=== PATIENT | female | born 1955 | race African-American/Black ===

== ENCOUNTER 2018-10-15 18:20 | Inpatient (IN) | payer MEDICARE, MEDICAID ==
[~2018-10-15] VITALS: Ht 170.2 cm; Wt 102.1 kg
[2018-10-15] MEDS ORDERED: PHENYLEPHRINE PO (18:42)
[2018-10-15] MEDS ORDERED: ALBU8.5H8 INH (18:42)
[2018-10-15] MEDS ORDERED: COD PO (18:42)
--- NOTE | 2018-10-15 18:43 | NUR ---
Patient medically cleared by ER MD for inpatient admission. Pending MHU bed availability. Currently bed is being cleaned.
--- NOTE | 2018-10-15 18:56 | NUR ---
Report given to Jesus SILVA
--- NOTE | 2018-10-15 19:34 | NUR ---
Pt wanded by security and searched for contraband. Report given to Winifred SILVA U.
--- NOTE | 2018-10-15 20:30 | NUR ---
1953 Admitted to [facility] 63 y/o F via w/c accompanied by x1 ER staff. A&O x3. Placed on 5150 hold for GD and DTO. Pt became aggressive with staff at [facility], refusing care, anxious, and noted sucking on her breast. Pt calm and answered all admission questions and signed admission papers. Resp even and unlabored. No s/s of acute distress noted. Denies pain. Pt ambulatory with steady gait, continent, self-care. Oriented to unit, room, bathroom, and phone privileges. Head to toe assessment done, noted with +2 nonpitting edema to right ankle and +1 nonpitting edema to left ankle. Per ER report, pt refused to have x-ray done to left foot for the swelling. Dr. Jensen psychiatrist notified of by charge nurse of admission with orders and Dr. Schafer notied of admission as well. Pt called her family to notify them of her admission. She refused to have charge nurse call her family to notify them. All safety precautions in place. Will cont to monitor.
[2018-10-15] MEDS ORDERED: MAG HYDROX/AL HYDROX/SIMETH 30 ML LIQUID UDC PO PRN (21:00)
[2018-10-15] MEDS ORDERED: MAGNESIUM HYDROXIDE 30 ML LIQUID UDC PO PRN (21:00)
[2018-10-15] MEDS ORDERED: ALBUTEROL SULFATE 8 GM HFA.AER.AD INH PRN (22:00)
[2018-10-15 22:08] VITALS: BP 136/43
[2018-10-15] MEDS ORDERED: ALBUTEROL SULFATE 1.25 MG/3 ML NEBU NEB PRN (22:15)
[2018-10-15] MEDS: LORAZEPAM 0.5 MG TABLET PO PRN (23:01)
--- NOTE | 2018-10-16 06:44 | NUR ---
GPS Nursing Note: Pt slept 6.0 hrs. Showered this am. No s/s of acute distress noted. Continues to have delusions and mood swings. Allowed lab draw and navjot well. All safety precautions in place. Will endorse to oncoming shift.
[2018-10-16 07:30] VITALS: BP 135/59
[2018-10-16 07:30] LABS: BASOPHILS % (AUTO) 0.4 % (0.0-2.0); EOSINOPHILS # (AUTO) 0.1 K/uL (0.0-0.7); EOSINOPHILS % (AUTO) 3.6 % (0.0-7.0); LYMPHOCYTES # (AUTO) 1.1 K/uL (20.0-40.0); LYMPHOCYTES % (AUTO) 28.9 % (20.5-51.5); MEAN CORPUSCULAR HEMOGLOBIN 29.2 uug (24.7-32.8); MEAN CORPUSCULAR HGB CONC 32 g/dL (32.3-35.6); MEAN CORPUSCULAR VOLUME 90.3 fL (75.5-95.3); MONOCYTES # (AUTO) 0.4 K/uL (2.0-10.0); MONOCYTES % (AUTO) 10.5 % (0.0-11.0); NEUTROPHILS # (AUTO) 2.1 K/uL (1.8-8.9); NEUTROPHILS % (AUTO) 56.6 % (38.5-71.5); PLATELET COUNT (AUTO) 206 K/uL (179-408); WHITE BLOOD COUNT (AUTO) 3.7 K/uL (3.8-11.8)
[2018-10-16 07:42] LABS: BILIRUBIN,TOTAL 0.3 mg/dL (0.2-1.0); CREATININE 0.9 mg/dL (0.6-1.3); MAGNESIUM 1.9 mg/dL (1.8-2.4); PHOSPHOROUS 3.8 mg/dL (2.5-4.9); POTASSIUM 4.1 mmol/L (3.5-5.1); TOTAL PROTEIN, SERUM 7.4 g/dL (6.4-8.2)
[2018-10-16 09:34] LABS: THYROID STIMULATING HORMONE 2.247 mIU/mL (0.358-3.740)
[2018-10-16] MEDS: NICOTINE 7 MG/24HR PATCH TD SCH (10:17)
[2018-10-16] MEDS: LORAZEPAM 0.5 MG TABLET PO PRN ×2 (12:22→17:15)
[2018-10-16 16:00] VITALS: BP 133/64
[2018-10-16] MEDS ORDERED: LORAZEPAM 2 MG/1 ML VIAL IM ONE (18:00)
[2018-10-16] MEDS ORDERED: diphenhydrAMINE 50 MG/1 ML VIAL IM ONE (18:00)
[2018-10-16] MEDS ORDERED: HALOPERIDOL LACTATE 5 MG/1 ML VIAL IM ONE (18:00)
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
[2018-10-16 20:27] VITALS: BP 130/60
[2018-10-16] MEDS: HALOPERIDOL 5 MG TABLET PO SCH (20:33)
[2018-10-16] MEDS: BENZTROPINE MESYLATE 0.5 MG TABLET PO SCH (20:33)
[2018-10-16] MEDS ORDERED: risperiDONE 1 MG/ML UDC GT SCH (21:00)
[2018-10-17 07:30] VITALS: BP 124/43
[2018-10-17] MEDS: BENZTROPINE MESYLATE 0.5 MG TABLET PO SCH ×2 (08:51→20:26)
[2018-10-17] MEDS: NICOTINE 7 MG/24HR PATCH TD SCH (08:51)
[2018-10-17] MEDS: HALOPERIDOL 5 MG TABLET PO SCH ×2 (08:51→20:26)
--- NOTE | 2018-10-17 11:50 | NUR ---
Initial Discharge Instructions: Patient is currently living with her mother Nicola Francisco ([phone]) at [address] [place], [place] [id number]. Per pt she is requesting to return home with her parents. Pts mother Nicola is open to pt returning home once stabilized and psychiatrically cleared. SW will continue to collaborate with pt, family, and MD regarding most appropriate discharge plans for this patient. SW will form a safe and proper discharge plan.
[2018-10-17 15:10] LABS: *BILIRUBIN,URIN NEGATIVE (NEGATIVE); *BLOOD, URINE NEGATIVE (NEGATIVE); *CLARITY,URINE CLEAR (CLEAR); *COLOR,URINE YELLOW (YELLOW); *KETONES,URINE NEGATIVE (NEGATIVE); *UROBILINOGEN,URINE 0.2 E.U./dl (NORMAL); LEUKOCYTE ESTERASE ,URINE NEGATIVE (NEGATIVE); NITRITE, URINE NEGATIVE (NEGATIVE); UGLUCOSE NEGATIVE (NEGATIVE)
[2018-10-17 16:00] VITALS: BP 147/61
[2018-10-17 16:02] LABS: MUCUS,URINE FEW /LPF (0-FEW); SQUAMOUS EPITHELIAL CELL,UR FEW /HPF (NONE SEEN); WBC,URINE 0-3 /HPF (0-3)
[2018-10-17] MEDS: LORAZEPAM 0.5 MG TABLET PO PRN (20:26)
[2018-10-17 20:31] VITALS: BP 121/56
[2018-10-17] MEDS ORDERED: diphenhydrAMINE 50 MG/1 ML VIAL IM ONE (22:15)
[2018-10-17] MEDS ORDERED: LORAZEPAM 2 MG/1 ML VIAL IM ONE (22:15)
[2018-10-17] MEDS ORDERED: HALOPERIDOL LACTATE 5 MG/1 ML VIAL IM ONE (22:15)
--- NOTE | 2018-10-17 23:02 | NUR ---
Patient became irritated when another patient was put into the room. Patient stated "That one over there is my mother and I don't like my mother". Right after that the Patient left the room and became increasingly agitated by the sight of the housekeepers cart. Patient had a blanket in her hand and begun swinging it violently at the cart. The cart was removed and the patient kept swinging the blanket at the floor and threatening to hit staff with it. This patient was very agitated and unmanageable. MD was notified and orders were received for IM injection. IM administered as ordered on right and left upper gluteal. Patient observed for 30 mins post injection, no signs of distress noted, will continue to monitor for safety as well as provide a therapeutic environment.
--- NOTE | 2018-10-18 00:26 | NUR ---
Patient in bed asleep at this time. Continuing to monitor closely, and to keep patient safe and free from injury.
[2018-10-18 07:30] VITALS: BP 100/54
[2018-10-18] MEDS: BENZTROPINE MESYLATE 0.5 MG TABLET PO SCH ×2 (08:04→20:11)
[2018-10-18] MEDS: HALOPERIDOL 5 MG TABLET PO SCH ×2 (08:04→20:12)
[2018-10-18] MEDS: NICOTINE 7 MG/24HR PATCH TD SCH (08:06)
[2018-10-18] MEDS: LORAZEPAM 0.5 MG TABLET PO PRN ×2 (10:57→22:44)
[2018-10-18 16:00] VITALS: BP 132/58
[2018-10-18] MEDS: ACETAMINOPHEN 325 MG TABLET PO PRN (16:03)
[2018-10-18 19:54] VITALS: BP_SYST 133; BP_SYST 160; BP_DIAS 63; BP_DIAS 75
--- NOTE | 2018-10-18 22:44 | NUR ---
Patient is pacing. Agitated. Ativan PO given. Will continue to monitor.
[2018-10-18] MEDS: TEMAZEPAM 7.5 MG CAPSULE PO PRN (23:19)
[2018-10-19 07:30] VITALS: BP 137/56
[2018-10-19] MEDS: LORAZEPAM 0.5 MG TABLET PO PRN (08:37)
[2018-10-19] MEDS: NICOTINE 7 MG/24HR PATCH TD SCH (08:44)
[2018-10-19] MEDS: BENZTROPINE MESYLATE 0.5 MG TABLET PO SCH ×2 (08:44→20:17)
[2018-10-19] MEDS: HALOPERIDOL 5 MG TABLET PO SCH ×2 (08:44→20:17)
[2018-10-19 16:00] VITALS: BP 122/59
[2018-10-19 20:11] VITALS: BP 129/60
[2018-10-19] MEDS: TEMAZEPAM 7.5 MG CAPSULE PO PRN (23:56)
--- NOTE | 2018-10-20 01:20 | NUR ---
PT WAS GIVEN RESTORIL FOR SLEEP, PT STILL AWAKE AT THIS TIME, SITTING IN A CHAIR IN THE HALLWAY. PACING AT TIMES. PT WAS OFFERED WITH ATIVAN, BUT REFUSED. WILL CONTINUE TO MONITOR.
[2018-10-20] MEDS: LORAZEPAM 0.5 MG TABLET PO PRN ×4 (02:50→20:52)
--- NOTE | 2018-10-20 02:51 | NUR ---
GIVEN ATIVAN PER PT REQUEST, WILL CONTINUE TO MONITOR.
--- NOTE | 2018-10-20 05:03 | NUR ---
NSG/GPS Patient visible on unit mostly pacing hallway with unpredictable behavior, bizarre affect with paranoid mood. Patient required frequent redirection through out night, with negative results, patient refused to remain in the room, insisted on staying out in the hallway sitting in bryson-chair, at times reading a bible other behaviors included writing, approaching the nursing station with demands for a snack, magazines, requests to go into the lounge and watch television as well as voiding all over herself twice while clothes and as she sat in the bryson-chair without regard to staff prompting and/or redirection. Patient appeared to be fixated on nursing staff. Approached the nursing station and yelled out negative comments regarding nurse and made threats, patient also threw her foot wear at nurse. Patient requires increased observation for unit and staff safety. Will endorse to a.m. shift to follow up with psychiatrist as she continues to monitor for violent outbursts.
--- NOTE | 2018-10-20 05:52 | NUR ---
GPS/NSG Patient continues to pace hallway with noted increased agitation, observed responding to internal stimuli; patient speaking about being . Patient's statements sound disorganized and tangental, appears to be escalating staff to continue observation to ensure a safe environment.
--- NOTE | 2018-10-20 06:58 | NUR ---
PT SLEPT TOTAL OF 2.30 HRS DESPITE OF RESTORIL AND ATIVAN. PACING IN THE HALLWAY.
[2018-10-20 07:30] VITALS: BP 141/58
[2018-10-20] MEDS: NICOTINE 7 MG/24HR PATCH TD SCH (08:08)
[2018-10-20] MEDS: HALOPERIDOL 5 MG TABLET PO SCH ×2 (08:09→20:31)
[2018-10-20] MEDS: BENZTROPINE MESYLATE 0.5 MG TABLET PO SCH ×2 (08:09→20:31)
--- NOTE | 2018-10-20 14:48 | NUR ---
GPS: Nursing Notes: Thought Disorder: Patient is awake and responding to her name, labile, unpredictable behavior, poor anger management, gets easily irritable when redirected, bizarre behavior, defecating and urinating on the trash can, redirected during shift, but gets loud and angry toward staff, believes that we are trying to poison her during lunch, unable to formulate a viable plan for self care, believes that the doctor is experimenting on her, poor impulse control at times, continue with treatment plan.
[2018-10-20 16:00] VITALS: BP 111/49
[2018-10-20 20:28] VITALS: BP 112/54
[2018-10-20] MEDS: ACETAMINOPHEN 325 MG TABLET PO PRN (20:52)
[2018-10-20] MEDS: TEMAZEPAM 7.5 MG CAPSULE PO PRN (20:52)
[2018-10-21 07:30] VITALS: BP 117/56
[2018-10-21] MEDS: LORAZEPAM 0.5 MG TABLET PO PRN ×2 (07:31→11:24)
[2018-10-21] MEDS: HALOPERIDOL 5 MG TABLET PO SCH ×2 (09:08→20:31)
[2018-10-21] MEDS: BENZTROPINE MESYLATE 0.5 MG TABLET PO SCH ×2 (09:08→20:30)
[2018-10-21] MEDS: NICOTINE 7 MG/24HR PATCH TD SCH (09:08)
[2018-10-21] MEDS: ACETAMINOPHEN 325 MG TABLET PO PRN (11:24)
--- NOTE | 2018-10-21 12:18 | NUR ---
Social work supportive counseling: caseworker protective services meet with pt, social science teacher provided supportive counseling. Pt is alert and oriented x3, pt began to [facility] Pt has previously been admitted to [facility]. Pt reports her psychiatrist is Doctor Ramirez, Therapist Amilcar and she also had a child support case officer. Pt is cooperative with social science teacher reporting history of multiple admissions. Pt began to be emotional explaining how her mother takes control of all her belongings including her documentation and medication. caseworker protective services attempted to redirect pt and provided emotional support. Pt became increasingly defensive with social science teacher. Pt became agitated, social science teacher educated pt on social workers role in [facility]. caseworker protective services redirected pt regarding her living arrangement, pt states she receives SSDI in the amount of $806 and widows benefits in the amount of $954. Pt reports that she has had issues with her SSI since moving back to [place] from [place]. caseworker protective services attempted to use problem solving ideas to address pts steps to independent. Pt was cooperative however became increasingly angry regarding her mother. Social work attempted to redirect pt again, sw could not. Pt became unpredictable and increasing poor anger management. caseworker protective services provided support. caseworker protective services reached out to [facility] {[address] [place] [id number]} . Spoke with motel front desk clerk who confirmed that a Dr Ramirez ([phone]), Dr. Fitzgerald ([phone]) are both active physicians. Confirmed that pt may be seen once discharged from facility. caseworker protective services will follow up prior to discharge.
[2018-10-21] MEDS ORDERED: HALOPERIDOL DECANOATE 50 MG/1 ML AMPUL IM ONE (16:00)
--- NOTE | 2018-10-21 16:26 | NUR ---
Firearms Report: BONIFACIO completed and submitted [employer]arms Report for 5150 DTO/GD certification.
[2018-10-21 16:46] VITALS: BP 118/46
[2018-10-21 20:20] VITALS: BP 137/73
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
[2018-10-21] MEDS: TEMAZEPAM 7.5 MG CAPSULE PO PRN (22:21)
[2018-10-22] MEDS: LORAZEPAM 0.5 MG TABLET PO PRN ×3 (00:26→17:24)
--- NOTE | 2018-10-22 06:33 | NUR ---
SLEPT INTERMITTENTLY FOR 5;30HRS. WOKE UP SEVERAL TIMES AND WENT TO OTHER PATIENTS ROOM. VERY INTRUSIVE AND WHEN REDIRECTED SHE BECOMES IRRITABLE AND USES SWEAR WORDS.
[2018-10-22] MEDS: BENZTROPINE MESYLATE 0.5 MG TABLET PO SCH ×2 (08:33→20:07)
[2018-10-22] MEDS: NICOTINE 7 MG/24HR PATCH TD SCH (08:33)
[2018-10-22] MEDS: HALOPERIDOL 5 MG TABLET PO SCH ×2 (08:33→20:07)
--- NOTE | 2018-10-22 12:11 | NUR ---
Discharge Planning Note: Industrial Manufacturing Technician received a call from patient's motherNicola ([phone]) to discuss discharge planning and patient prognosis. SW provided information to pt's mother about her prognosis and informed her that patient will likely be discharged this week. Pt's mother verbalized understanding. Pt's mother requested that transportation be arranged by the hospital for the patient to return home. SW assured family that transportation would be provided. SW provided opportunity for pt's mother to express concerns and ventilate feelings. SW explored options with the mother about supportive services for the patient. Per mother, the patient sees a therapist at [facility] [[address], [place] [address]]. SW will follow-up on supportive services for the patient.
[2018-10-22 16:57] VITALS: BP 143/69
[2018-10-22] MEDS: ACETAMINOPHEN 325 MG TABLET PO PRN (17:24)
[2018-10-22 20:00] VITALS: BP 146/63
--- NOTE | 2018-10-22 20:00 | NUR ---
RECEIVED PATIENT IN THE HALLWAY, SHE IS NOTED A/O X 3, CALM AND PLEASANT UPON APPROACHED. UPON INTERVIEW, SHE STATED, "I AM FEELING BETTER, I AM GOING BACK WITH MY BOYFRIEND ONCE I AM DISCHARGED FROM HERE". PATIENT NOTED WITH FAIR INSIGHT AND JUDGMENT TO THE REASON FOR HER ADMISSION TO [facility]. SAFETY IS EMPHASIS. PT IS REASSURED FOR HER SAFETY. WILL CONTINUE TO MONITOR.
[2018-10-23] MEDS: TEMAZEPAM 7.5 MG CAPSULE PO PRN (01:32)
[2018-10-23 07:30] VITALS: BP 133/25
[2018-10-23] MEDS: HALOPERIDOL 5 MG TABLET PO SCH ×2 (08:39→21:36)
[2018-10-23] MEDS: BENZTROPINE MESYLATE 0.5 MG TABLET PO SCH ×2 (08:39→21:36)
[2018-10-23] MEDS: NICOTINE 7 MG/24HR PATCH TD SCH (08:39)
[2018-10-23] MEDS ORDERED: HALOPERIDOL LACTATE 5 MG/1 ML VIAL IM ONE (11:15)
[2018-10-23] MEDS ORDERED: diphenhydrAMINE 50 MG/1 ML VIAL IM ONE (11:15)
[2018-10-23] MEDS ORDERED: LORAZEPAM 2 MG/1 ML VIAL IM ONE (11:15)
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
[2018-10-24 07:30] VITALS: BP 133/52
[2018-10-24] MEDS: BENZTROPINE MESYLATE 0.5 MG TABLET PO SCH ×2 (08:39→20:10)
[2018-10-24] MEDS: HALOPERIDOL 5 MG TABLET PO SCH ×2 (08:39→20:11)
[2018-10-24] MEDS: NICOTINE 7 MG/24HR PATCH TD SCH (08:39)
[2018-10-24] MEDS: DIVALPROEX 500 MG TABLET.DR PO SCH ×2 (09:00→18:25)
[2018-10-24] MEDS: LORAZEPAM 0.5 MG TABLET PO PRN (10:05)
[2018-10-24 16:12] VITALS: BP 142/68
[2018-10-25 07:30] VITALS: BP 168/79
[2018-10-25] MEDS: LORAZEPAM 0.5 MG TABLET PO PRN (08:00)
[2018-10-25] MEDS: BENZTROPINE MESYLATE 0.5 MG TABLET PO SCH ×2 (08:00→20:53)
[2018-10-25] MEDS: HALOPERIDOL 5 MG TABLET PO SCH ×2 (08:00→20:53)
[2018-10-25] MEDS: NICOTINE 7 MG/24HR PATCH TD SCH (08:00)
[2018-10-25] MEDS: DIVALPROEX 500 MG TABLET.DR PO SCH ×2 (08:03→16:35)
--- NOTE | 2018-10-25 10:20 | NUR ---
PT RECEIVED PACING UNIT HALLWAY. EASILY IRRITABLE AND LABILE. PT WENT TO NURSES STATION AND REMOVED DECORATIONS AND REFUSED TO GIVE THEM BACK. ATIVAN ADMINSITERED FOR ANXIETY. COMPLIANT WITH MEDICATIONS. REQUIRES FREQUENT REDIRECTION.
[2018-10-25] MEDS ORDERED: diphenhydrAMINE 50 MG/1 ML VIAL IM ONE ×2 (12:30→12:45)
[2018-10-25] MEDS ORDERED: HALOPERIDOL LACTATE 5 MG/1 ML VIAL IM ONE (12:30)
[2018-10-25] MEDS ORDERED: LORAZEPAM 2 MG/1 ML VIAL IM ONE (12:30)
--- NOTE | 2018-10-25 12:30 | NUR ---
PT NOTED TO BE HIGHLY IRRITABLE AND AGGRESSIVE. LAYING DOWN ON OTHER PT'S BED. DELUSIONAL AND PARANOID. STATES SHE IS HAVING A MISCARRIAGE BECAUSE STAFF MEMBER "REMOVED THE CORK FROM MY VAGINA, AND ALL THE EMBRYOS ARE COMING OUT." PT REFUSED TO GET OUT OF THE BED UNTIL SECURITY WAS CALLED. PT THEN WENT INTO HER ROOM, SCREAMING/YELLING, HIGHLY UNPREDICTABLE, POSTURING AT STAFF. PT RECEIVED HER LUNCH TRAY AND THREW IT ON THE FLOOR. CHARGE NURSE CALLED DOCTOR AND RECEIVED ORDER FOR EMERGENCY IM INJECTIONS.
[2018-10-25 20:32] VITALS: BP 122/45
[2018-10-25] MEDS: TEMAZEPAM 7.5 MG CAPSULE PO PRN (22:02)
[2018-10-26 07:30] VITALS: BP 117/50
[2018-10-26] MEDS: DIVALPROEX 500 MG TABLET.DR PO SCH ×2 (08:11→16:12)
[2018-10-26] MEDS: BENZTROPINE MESYLATE 0.5 MG TABLET PO SCH ×2 (08:11→20:05)
[2018-10-26] MEDS: NICOTINE 7 MG/24HR PATCH TD SCH (08:11)
[2018-10-26] MEDS: HALOPERIDOL 5 MG TABLET PO SCH ×2 (08:11→20:05)
[2018-10-26] MEDS: LORAZEPAM 0.5 MG TABLET PO PRN ×2 (08:11→11:42)
[2018-10-26 16:08] VITALS: BP 118/54
--- NOTE | 2018-10-26 18:29 | NUR ---
END OF SHIFT NOTE PATIENT IS ALERT, ORIENTED X4, VERBALLY RESPONSIVE, NO ACUTE DISTRESS NOTED, DURING SHIFT NOTED WITH AGGRESSIVE BEHAVIOR, DIFFICULT TO REDIRECT, MEDICATION GIVEN FOR AGGRESSION ORDERED, WITH SOME EFFECTIVENESS, PATIENT CAME TO NURSING STATION AT LUNCH TIME, STATED " I NEED MORE FOOD BECAUSE I AM " HOWEVER PATIENT TOOK ALL HER MEDS AND TOLERATED WELL.
[2018-10-26 21:14] VITALS: BP 140/69
[2018-10-27 07:30] VITALS: BP 131/40
[2018-10-27] MEDS: LORAZEPAM 0.5 MG TABLET PO PRN (08:05)
[2018-10-27] MEDS: HALOPERIDOL 5 MG TABLET PO SCH ×2 (08:05→20:05)
[2018-10-27] MEDS: BENZTROPINE MESYLATE 0.5 MG TABLET PO SCH ×2 (08:06→20:05)
[2018-10-27] MEDS: DIVALPROEX 500 MG TABLET.DR PO SCH ×2 (08:06→16:16)
[2018-10-27] MEDS: NICOTINE 7 MG/24HR PATCH TD SCH (08:06)
--- NOTE | 2018-10-27 10:00 | NUR ---
PT RECEIVED AMBULATING UNIT HALLWAY. QUITE LABILE, PARANOID AND DELUSIONAL. EASILY IRRITABLE AT TIMES. BELIEVES SHE IS 3 MONTHS AND REQUESTING A W/C TO NOT HURT HER BABY. PT ALSO ACCUSING STAFF OF POISONING HER BREAKFAST. PT COMPLIANT WITH ALL PO MEDICATIONS EXCEPT FOR DEPAKOTE. NO COMBATIVE BEHAVIOR NOTED AT THIS TIME. POOR IMPULSE CONTROL. WILL CONTINUE TO MONITOR.
[2018-10-27 16:00] VITALS: BP 121/30
[2018-10-27 20:37] VITALS: BP 114/55
[2018-10-27] MEDS: TEMAZEPAM 7.5 MG CAPSULE PO PRN (22:47)
[2018-10-28] MEDS: LORAZEPAM 0.5 MG TABLET PO PRN ×3 (00:36→23:33)
[2018-10-28 07:30] VITALS: BP 139/64
[2018-10-28] MEDS: HALOPERIDOL 5 MG TABLET PO SCH ×2 (08:35→20:06)
[2018-10-28] MEDS: DIVALPROEX 500 MG TABLET.DR PO SCH ×4 (08:35→17:57)
[2018-10-28] MEDS: BENZTROPINE MESYLATE 0.5 MG TABLET PO SCH ×2 (08:35→20:06)
[2018-10-28] MEDS: NICOTINE 7 MG/24HR PATCH TD SCH (10:53)
--- NOTE | 2018-10-28 14:22 | NUR ---
Discharge planning: abrasive worker spoke with patient about discharge plan. Per patient, she no longer wants to live with her mother. Patient may benefit from halfway placement and is agreeable to this option. Patient states she receives services from [facility] [[address], [place] [address]; ] and would like to remain in the area if placed in halfway. abrasive worker has faxed referral to [facility] [[address] [place] [address]; ] and is awaiting confirmation of acceptance. abrasive worker will continue to follow-up with patient and family.
[2018-10-28 15:58] VITALS: BP 151/59
[2018-10-28] MEDS ORDERED: HALOPERIDOL DECANOATE 50 MG/1 ML AMPUL IM ONE (18:00)
[2018-10-28 20:00] VITALS: BP 149/65
[2018-10-28] MEDS ORDERED: TEMAZEPAM 7.5 MG CAPSULE PO PRN (21:30)
[2018-10-29] MEDS: LORAZEPAM 0.5 MG TABLET PO PRN (06:32)
[2018-10-29 07:30] VITALS: BP 136/63
[2018-10-29] MEDS: NICOTINE 7 MG/24HR PATCH TD SCH (09:00)
[2018-10-29] MEDS: DIVALPROEX 500 MG TABLET.DR PO SCH (09:55)
[2018-10-29] MEDS: BENZTROPINE MESYLATE 0.5 MG TABLET PO SCH (09:55)
[2018-10-29] MEDS: HALOPERIDOL 5 MG TABLET PO SCH (09:55)
--- NOTE | 2018-10-29 10:21 | NUR ---
DC NOTE: Patient will be discharged to [facility] [[address] [place] [address]; ] and transportation will be provided by ambulance transportation at 11:00am. Please arrange ambulance transportation for this patient. key worker has spoken with Liz, team coordinator, who states the facility is ready to accept the patient today. Patient is AxOx2-3, denies SI and HI, is able to sosa for self-care, and agreeable with discharge plan. key worker has called and spoken with patient mother, Yelena [[phone]], who is aware and agreeable with discharge plan. Patient will follow-up with Dr. Branham [auricular acupuncturist] and Dr. Kapadia [psychiatrist] at the facility. key worker has also provided patient with a list of mental health resources including [facility] Crisis Line [ ], [facility] [ ], and National Suicide Prevention Lifeline [ ].
--- NOTE | 2018-10-29 13:30 | NUR ---
GPS: Nursing Notes: Discharge Notes: Patient is awake and responding to her name, compliant with her medications, following staff directions, needs prompting to participate in therapeutic groups, assisted with ADL's, denies any SI/HI, denies any AH/VH, denies any pain or discomfort, denies any SOB, discharge to [facility] at [address], [place] [address] , report given to Gwen, RN supervisor [employer], took all her belongings with her, transported to facility via ambulance. vegetable farm worker has called and spoken with patient mother, Yelena [[phone]], who is aware and agreeable with discharge plan. Patient will follow-up with Dr. Branham [detention worker] and Dr. Kapadia [psychiatrist] at the facility. vegetable farm worker has also provided patient with a list of mental health resources including [facility] Crisis Line [ ], [facility] [ ], and National Suicide Prevention Lifeline [ ].
[2018-11-18] MEDS ORDERED: HALOPERIDOL DECANOATE 50 MG/1 ML AMPUL IM SCH (18:00)
== END 2018-10-29 13:30 | DRG 885 ==
LOC: ER 18:22 → GPS 19:39 → EDBD 19:39 → GPS 10-26 16:00
PROVIDERS: ADMIT Psychiatry & Neurology Psychiatry; ATTEND Internal Medicine
DX: F25.0 Schizoaffective disorder, bipolar type (principal); Z85.3 Personal history of malignant neoplasm of breast; Z90.10 Acquired absence of unspecified breast and nipple; Z91.14 Patient's other noncompliance with medication regimen; F41.9 Anxiety disorder, unspecified; E66.9 Obesity, unspecified; Z68.37 Body mass index [BMI] 37.0-37.9, adult; Z71.3 Dietary counseling and surveillance; F17.210 Nicotine dependence, cigarettes, uncomplicated; Z59.0 Homelessness; F10.10 Alcohol abuse, uncomplicated; Y90.9 Presence of alcohol in blood, level not specified
CPT/HCPCS: 36415; 80164; 83735; 84100; 84443; 85025; 87086; A4663; A9150; J1200; J1630; J1631; J2060